=== PATIENT | female | born 1945 | race Caucasian/White ===

== ENCOUNTER 2023-10-22 09:21 | Outpatient (CLI) | payer OTHER ==
[~2023-10-22 09:21] MED LIST: AMLO10TA13 PO; DOXE10CA3 PO; LEVO137T2 PO; LOSA100T58 PO; ROSU40TA22 PO
== END 2023-10-22 23:59 | disposition home or self-care (01) ==
LOC: RAD 09:21
PROVIDERS: ATTEND Surgery
DX: K44.9 Diaphragmatic hernia without obstruction or gangrene (principal); Z90.49 Acquired absence of other specified parts of digestive tract; T81.9XXS Unspecified complication of procedure, sequela; X58.XXXS Exposure to other specified factors, sequela
CPT/HCPCS: 74176

== ENCOUNTER 2024-08-16 08:44 | Outpatient (CLI) | payer OTHER ==
[~2024-08-16 08:44] MED LIST changes: -ROSU40TA22 PO; +ROSU40TA89 PO
== END 2024-08-16 23:59 | disposition home or self-care (01) ==
LOC: RAD 08:44
PROVIDERS: ATTEND Surgery
DX: K44.9 Diaphragmatic hernia without obstruction or gangrene (principal); K57.30 Diverticulosis of large intestine without perforation or abscess without bleeding; N28.1 Cyst of kidney, acquired; N94.89 Other specified conditions associated with female genital organs and menstrual cycle; K21.00 Gastro-esophageal reflux disease with esophagitis, without bleeding; R10.84 Generalized abdominal pain; R13.10 Dysphagia, unspecified
CPT/HCPCS: 71250; 74176

== ENCOUNTER 2024-08-31 15:06 | Outpatient (CLI) | payer OTHER ==
[~2024-08-31 15:06] MED LIST changes: +barium sulfate 340gm for oral suspension 1 BOTTLE SUSP.RECON PO ONE
== END 2024-08-31 23:59 | disposition home or self-care (01) ==
LOC: RAD 15:06
PROVIDERS: ATTEND Surgery
DX: K44.9 Diaphragmatic hernia without obstruction or gangrene (principal); K21.9 Gastro-esophageal reflux disease without esophagitis
CPT/HCPCS: 74220

== ENCOUNTER 2025-05-19 07:53 | Emergency (ER) | payer OTHER ==
[~2025-05-19] VITALS: Ht 160 cm; Wt 72.7 kg
[~2025-05-19 07:53] MED LIST changes: -barium sulfate 340gm for oral suspension 1 BOTTLE SUSP.RECON PO ONE
--- NOTE | 2025-05-19 08:02 | Physician Documentation ---
History of Present Illness General Stated Complaint: FALL/SHOULDER PAIN Time Seen by MD: 08:01 History of Present Illness Initial Comments Patient is a 79-year-old female who states she woke up around 3:00 a.m. was heading to the bathroom when she got dizzy and she fell to the ground. Patient states she struck her head. The patient is not sure if she lost consciousness. Patient states she developed significant left shoulder pain with movement of that left arm. Patient states she remained on the ground for about an hour but was able to get herself up. Patient states she does not have any significant cardiac problems. Patient states that she was not feeling ill prior to going to sleep. She states she has had one seizure in the past. Patient states she is having 10/10 pain to the left shoulder. Medication Reconciliation Allergies: Uncoded Allergies: SULFA (Allergy, Unknown, RASH, 05/19/25) Scheduled Amlodipine Besylate (Amlodipine Besylate), 1 MG PO HS, (Reported) Doxepin HCl (Doxepin HCl), 1 TAB PO HS, (Reported) Levothyroxine Sodium (Levothyroxine Sodium), 1 TAB PO DAILY, (Reported) Losartan Potassium (Losartan Potassium), 1 TAB PO HS, (Reported) Rosuvastatin Calcium (Rosuvastatin Calcium), 1 TAB PO HS, (Reported) Past Medical History Past Medical History: High Cholesterol, Hypertension, Constipation, Thyroid (unspecified) Past Surgical History: noncontributory Alcohol Use: Occasionally Drug Use: none Lives with: Spouse Lives In: Home Review of Systems All Other Systems at this time: Reviewed and Negative Physical Exam Physical Exam Physical Exam VITALS: Reviewed and as above. GENERAL: Alert, no apparent distress. HEENT: Normocephalic, atraumatic, PERRL, EOMI, dry mucosa, no erythema RESPIRATORY: Lungs clear, normal breath sounds, no respiratory distress. CHEST: No accessory muscle use, no retractions CV: Regular rate, rhythm, no edema, no murmur, No: JVD GI: Soft, non-tender, bowels sounds present, no rebound, guarding, or rigidity BACK: No CVA tenderness, or swelling MUSCULOSKELETAL: The patient is tender over the left shoulder. The patient has swelling anterior to the shoulder and she has pain with any ratio range of motion of the left shoulder distal neurovascular is intact. SKIN: Warm and dry, patient has a about a 1 cm superficial abrasion to the bridge of the nose. With some swelling. NEURO: Oriented x4, No motor or sensory deficit PSYCH: Normal mood and affect, no agitation Procedures Joint Reduction Joint Reduction : Reduction By: myself Conscious Sedation: Yes Pre-Procedure NV Exam: within normal limits Post Reduction Film: joint reduced Tolerated Procedure Well?: yes, no complications Procedure Note Patient had conscious sedation the patient has a 10 minute intraservice time the patient had successful joint reduction with external rotation neurovascularly intact four and after the reaction. Moderate Sedation : Pulmonary Assessment: Unremarkable Neurological Assessment: Unremarkable Cardiovascular Assessment: Unremarkable Other Systems: Unremarkable Hx of sedation difficulty?: No Medications: None ASA Class: I-normal healthy Mallampati Score/Visibility of: Class 1-full Medication Used: Diprivan Staff Present: primary nurse, vehicle glass technician, ortho nurse Monitoring: school lunch monitor, Spo2, NIPB, patient on oxygen via N/C, suction ready, crash cart at bedside, BVM ready Tolerated Procedure Well?: no Duration of Procedure (min): 10 Procedure Note The patient was given informed consent for a left shoulder reduction, the patient was given a time-out and the patient then received 75 mcg of propofol with successful reduction of the left shoulder dislocation. Post reduction films were interpreted by myself and showed a reduced dislocation of the left shoulder there was no evident fracture and no significant soft tissue swelling. I interpreted as showing no dislocation and no acute abnormality. The patient was immobilized using a sling Progress Results/Orders Results/Orders Orders - BOBO SIDDIQUI MD Chest,Single View (05/19/25 08:04) Monitor (05/19/25 08:04) Saline Lock (05/19/25 08:04) Oxygen (05/19/25 08:04) Shoulder, Complete (Min 2 Vws) (05/19/25 08:06) Shoulder, Complete (Min 2 Vws) (05/19/25 09:36) Ct Head (05/19/25 11:39) Completed Orders - BOBO SIDDIQUI MD Chest,Single View (05/19/25 08:04) Cbc/Diff (05/19/25 08:04) BMP (05/19/25 08:04) PBNP (05/19/25 08:04) Electrocardiogram (05/19/25 08:04) Hs Troponin I W Calculations (05/19/25 08:04) Hs Troponin I W Calculations (05/19/25 10:04) Shoulder, Complete (Min 2 Vws) (05/19/25 08:06) Ondansetron Inj. (Zofran 4mg/2ml Vial) (05/19/25 08:20) Morphine 10mg/Ml Inj. (Morphine Inj.) (05/19/25 08:20) Propofol Inj (Diprivan Inj) (05/19/25 08:35) Procalcitonin (05/19/25 09:06) Shoulder, Complete (Min 2 Vws) (05/19/25 09:36) Ct Head (05/19/25 11:39) Ua W/Microscopic, Cult If Ind (05/19/25 11:20) Vital Signs 05/19/25 05/19/25 05/19/25 05/19/25 08:04 08:54 09:13 09:18 Temp 97.7 Pulse 103 90 Resp 16 16 8 B/P (MAP) 126/75 176/94 (121) Pulse Ox 98 98 O2 Flow Rate 0 2.0 05/19/25 05/19/25 05/19/25 05/19/25 09:28 09:30 09:35 09:37 Pulse 95 94 92 92 Resp 12 14 14 16 B/P (MAP) 157/95 153/95 Pulse Ox 98 96 97 94 O2 Delivery Nasal Cannula O2 Flow Rate 3.0 3.0 3.0 3.0 05/19/25 05/19/25 09:43 12:07 Temp 97.9 Pulse 92 92 Resp 14 16 B/P (MAP) 157/92 (113) 131/80 Pulse Ox 100 98 O2 Delivery Nasal Cannula O2 Flow Rate 3.0 Laboratory Tests Test 05/19/25 08:29 05/19/25 10:18 05/19/25 11:20 White Blood Count 12.9 H Red Blood Count 4.98 Hemoglobin 15.5 Hematocrit 44.8 Mean Corpuscular Volume 90.1 Mean Corpuscular Hemoglobin 31.2 H Mean Corpuscular Hemoglobin Concent 34.6 Red Cell Distribution Width 13.8 Platelet Count 298 Mean Platelet Volume 9.1 Neutrophils (%) (Auto) 90.1 H Lymphocytes (%) (Auto) 6.3 L Monocytes (%) (Auto) 3.5 Eosinophils (%) (Auto) 0 Basophils (%) (Auto) 0.1 Neutrophils # (Auto) 11.6 H Lymphocytes # (Auto) 0.8 L Monocytes # (Auto) 0.5 Eosinophils # (Auto) 0.0 Basophils # (Auto) 0.0 CBC Comment Sodium Level 138 Potassium Level 3.9 Chloride Level 102 Carbon Dioxide Level 23.1 L Anion Gap 13 Blood Urea Nitrogen 10 Creatinine 0.70 Estimated GFR/1.73 m2 81 BUN/Creatinine Ratio 14.3 Glucose Level 138 H Calcium Level 8.8 Troponin I High Sensitivity 5 6 Pro-B-Type Natriuretic Peptide 206 Albumin 4.4 Procalcitonin < 0.05 Chemistry Comments Troponin I High Sens Percent Delta 20 Troponin I Hi Sens Absolute Change 1 Urine Specimen Description Cln catch midstream Urine Color Yellow Urine Clarity Clear Urine pH 6.0 Urine Specific [place] >=1.030 Urine Protein 30 H Urine Glucose (UA) Negative Urine Ketones 40 H Urine Occult Blood Small Urine Nitrite Negative Urine Bilirubin Small Urine Urobilinogen 0.2 Urine Leukocyte Esterase Negative Urine RBC 0-2 Urine WBC 0-4 Urine Squamous Epithelial Cells Few Urine Bacteria Few Urine Mucus Few Urine Culture Indicated Not ind Volume Urine Centrifuged 10 ml Urine Comment EKG/XRAY/CT/US/VASC/MRI Chest X-Ray : Additional Comments Patient: DALE FREITAS Medical Record: [id number] [facility] : 1945, Age: 79 Sex: Female Location: ER Patient Status: REG ER Service Date/Time: 05/19/25803 Ordering Physician: BOBO SIDDIQUI MD Exam: CHEST,SINGLE VIEW CHEST RADIOGRAPH Indication: CP Technique: Single frontal view of the chest was obtained COMPARISON: CT CT CHEST ABDOMEN PELVIS on DOS: 08/16/24, CHEST,SINGLE VIEW on DOS: 10/29/22, CHEST,SINGLE VIEW on DOS: 10/27/22, CHEST,SINGLE VIEW on DOS: 10/26/22, CHEST,TWO VIEWS on DOS: 10/19/22 FINDINGS: Lines and Tubes: None Lungs: Congestion Pleura: No effusion. No pneumothorax. Cardiomediastinal contours: Unremarkable Bones: Unremarkable IMPRESSION: Increased interstital prominence. This may represent pulmonary vascular congestion and/or viral pneumonia. Clinical correlation advised. Electronically Signed by:FRANSISCO QUINTERO MD Date & Time: 05/19/25832 Dictated by: FRANSISCO QUINTERO MD Dictation date and time: 05/19/25832 Primary Care Provider: NO PRIMARY CARE PROVIDER cc: BOBO SIDDIQUI MD ~ CT : Impression Patient: DALE FREITAS Medical Record: [id number] [facility] : 1945, Age: 79 Sex: Female Location: ER Patient Status: [facility] ER Service Date/Time: 05/19/251138 Ordering Physician: BOBO SIDDIQUI MD Exam: CT HEAD CLINICAL HISTORY: fall TECHNIQUE: Helical scanning was performed of the head from the skull base to the vertex. Multiplanar reconstructions were performed. This exam was performed according to our departmental dose optimization program. Up-to-date CT equipment and radiation dose reduction techniques are utilized as appropriate. CTDI 54 DLP 964 COMPARISON: None FINDINGS: There is no evidence for acute intracranial hemorrhage, acute ischemic changes, mass, mass effect, or extra-axial fluid collection. There is no hydrocephalus or midline shift. There is no effacement of the cerebral sulci and basal subarachnoid cisterns. The castillo-white matter differentiation is well maintained. The imaged paranasal sinuses are clear. IMPRESSION: NO ACUTE INTRACRANIAL ABNORMALITY SEEN. Electronically Signed by:NOEL CABALLERO MD Date & Time: 05/19/251243 Dictated by: NOEL CABALLERO MD Dictation date and time: 05/19/251243 Primary Care Provider: NO PRIMARY CARE PROVIDER cc: BOBO SIDDIQUI MD ~ Medical Decision Making Findings The patient's EKG was interpreted by myself at 8:09 a.m. a.m. it showed a sinus rhythm with a rate of 86 a left axis deviation low voltages Q-waves inferiorly in three and AVF and nonspecific ST abnormalities was interpreted as an abnormal EKG. The patient's school lunch monitor was interpreted as a sinus rhythm. The patient was alert and oriented she did have an obvious shoulder dislocation on initial exam x-rays interpreted by myself of the left shoulder demonstrated a anterior dislocation of the left shoulder and no fracture or significant soft tissue swelling was appreciated. I have reviewed the radiologist's interpretation as well the patient was found to be clinically dehydrated she was hydrated in the emergency department. She was consented for moderate sedation and she was sedated using 75 mg of propofol and the left shoulder dislocation was reduced. The patient tolerated this well. The patient's pain was resolved after the shoulder dislocation the patient's CT head was reviewed by myself and interpreted by me as showing no acute intracranial process. There is no significant abnormalities on the patient's laboratories including her urine urinalysis. Her troponins were negative the patient's prior hospitalizations have been reviewed. Her pulse oximetry was interpreted as normal and adequate. The patient will be discharged with instructions to follow up with Dr. Gonsalves. The patient's pulse oximetry was interpreted as normal and adequate. Departure Disposition: HOME / SELF CARE / HOMELESS Impression: Primary Impression: Dehydration Additional Impressions: Head injury Qualified Codes: S09.90XA - Unspecified injury of head, initial encounter Shoulder dislocation Qualified Codes: S43.005A - Unspecified dislocation of left shoulder joint, initial encounter Discharge Instructions: Shoulder Dislocation, [id number] Additional Instructions: Use the sling for the next three days you can then start using your arm in a limited fashion. If you have significant pain continue to use the sling and follow up with Dr. Gonsalves. Follow up with Dr. Gonsalves as soon as you can. Return for significant worsening of your symptoms. Referrals: NO PRIMARY CARE PROVIDER (PCP) KAITLIN GONSALVES MD Signature Scribe Signature: no Attestation: The note accurately reflects work and decisions made by me.Bobo Siddiqui MD 05/21/25 10:03 BOBO SIDDIQUI MD May 19, 2025 08:01
--- NOTE | 2025-05-19 08:11 | ELECTROCARDIOGRAPH REPORT ---
[facility] Test Date: 2025-05-19 Test Time: 08:09:01 Pat Name: DALE FREITAS Department: [facility] Patient ID: [id number] Room: Gender: F Change Management Analyst: : 1945 Requested By: BOBO OWENS Order Number: [id number] Reading MD: Measurements Intervals Bennett Rate: 86 P: 30 VT: 132 QRS: -28 QRSD: 83 T: 35 QT: 391 QTc: 468 Interpretive Statements Sinus rhythm Inferior infarct, old Please click the below link to view image of tracing.
[2025-05-19] MEDS: propofol 10mg/ml 20ml vial IV ONE (08:35)
--- NOTE | 2025-05-19 08:35 | RADIOLOGY REPORT ---
CHEST RADIOGRAPH Indication: CP Technique: Single frontal view of the chest was obtained COMPARISON: CT CT CHEST ABDOMEN PELVIS on DOS: 08/16/24, CHEST,SINGLE VIEW on DOS: 10/29/22, CHEST,SINGLE VIEW on DOS: 10/27/22, CHEST,SINGLE VIEW on DOS: 10/26/22, CHEST,TWO VIEWS on DOS: 10/19/22 FINDINGS: Lines and Tubes: None Lungs: Congestion Pleura: No effusion. No pneumothorax. Cardiomediastinal contours: Unremarkable Bones: Unremarkable IMPRESSION: Increased interstital prominence. This may represent pulmonary vascular congestion and/or viral pneumonia. Clinical correlation advised.
--- NOTE | 2025-05-19 08:51 | RADIOLOGY REPORT ---
CLINICAL INFORMATION: Shoulder pain. TECHNIQUE: 2 radiographic views of the left shoulder were submitted. COMPARISON: None FINDINGS: There is anterior subcoracoid dislocation of the left humeral head. No acute fracture visualized. IMPRESSION: Anterior subcoracoid left shoulder dislocation.
[2025-05-19 08:52] LABS: MEAN PLATELET VOLUME 9.1 FL (7.4-10.4); RED CELL DISTRIBUTION WIDTH 13.8 % (11.5-14.5)
[2025-05-19] MEDS: ondansetron/PF 4mg/2ml inj IV ONE (08:54)
[2025-05-19] MEDS: morphine 10mg/ml inj. IV ONE (08:54)
[2025-05-19 08:58] LABS: CREATININE 0.70 MG/DL (0.40-0.90); PRO BRAIN NATRIURETIC PEPTIDE 206 PG/ML (0-450); TOTAL CARBON DIOXIDE 23.1 MMOL/L (24-32); eCRCL 56 ML/MIN; eGFR 81 ML/MIN
[2025-05-19 11:44] LABS: LEUKOCYTE ESTERASE ,URINE NEGATIVE (Neg); NITRITES, URINE NEGATIVE (Neg); OCCULT BLOOD,URINE SMALL (Neg)
[2025-05-19 11:50] LABS: UA COLLECTION TYPE CLN CATCH MIDSTREAM
[2025-05-19 11:52] LABS: MUCUS STRANDS FEW /LPF (Neg); SQUAMOUS EPITHELIAL CELL,UR FEW /LPF (FEW)
--- NOTE | 2025-05-19 11:58 | RADIOLOGY REPORT ---
CLINICAL INDICATION: Shoulder Pain POST REDUCTION TECHNIQUE: 3v DI SHOULDER, COMPLETE (MIN 2 VWS) Comparison: DI SHOULDER, COMPLETE (MIN 2 VWS) on DOS: 05/19/25 FINDINGS/IMPRESSION: : There is no evidence of acute fracture or dislocation. Soft tissues are unremarkable.
[2025-05-19 12:07] VITALS: BP 131/80; PULSE 92; RESP 16; TEMP 97.9; O2SAT 98
--- NOTE | 2025-05-19 12:47 | RADIOLOGY REPORT ---
CLINICAL HISTORY: fall TECHNIQUE: Helical scanning was performed of the head from the skull base to the vertex. Multiplanar reconstructions were performed. This exam was performed according to our departmental dose optimization program. Up-to-date CT equipment and radiation dose reduction techniques are utilized as appropriate. CTDI 54 DLP 964 COMPARISON: None FINDINGS: There is no evidence for acute intracranial hemorrhage, acute ischemic changes, mass, mass effect, or extra-axial fluid collection. There is no hydrocephalus or midline shift. There is no effacement of the cerebral sulci and basal subarachnoid cisterns. The castillo-white matter differentiation is well maintained. The imaged paranasal sinuses are clear. IMPRESSION: NO ACUTE INTRACRANIAL ABNORMALITY SEEN.
== END 2025-05-19 12:55 | disposition home or self-care (01) ==
LOC: ER 07:54
DX: S43.085A Other dislocation of left shoulder joint, initial encounter (principal); I10 Essential (primary) hypertension; E78.00 Pure hypercholesterolemia, unspecified; E86.0 Dehydration; Z79.899 Other long term (current) drug therapy; Z72.89 Other problems related to lifestyle; W18.39XA Other fall on same level, initial encounter; Y93.89 Activity, other specified; Y92.89 Other specified places as the place of occurrence of the external cause; Y99.8 Other external cause status
CPT/HCPCS: 23650; 36415; 70450; 71045; 73030; 80048; 81001; 83880; 84145; 84484; 85025; 93005; 96374; 96375; 99285; A6258; J2274; J2405; J7030; 94760; A4565; L3650